=== PATIENT | female | born 1965 | race Two or more races ===

== ENCOUNTER 2017-04-01 08:20 | Outpatient (CLI) | payer OTHER ==
[~2017-04-01 08:20] MED LIST: ATACAND HCT 11 UDTAB PO; VOLTAREN
== END 2017-04-01 08:34 | disposition home or self-care (01) ==
LOC: MRI 08:20
DX: M54.16 Radiculopathy, lumbar region (principal)
CPT/HCPCS: 72148

== ENCOUNTER 2018-02-18 10:33 | Outpatient (CLI) | payer OTHER | END 2018-02-18 10:54 | disposition home or self-care (01) | LOC: RAD 10:33 | DX: N18.3 Chronic kidney disease, stage 3 (moderate) (principal); M19.91 Primary osteoarthritis, unspecified site ==

== ENCOUNTER 2018-03-02 10:27 | Outpatient (CLI) | payer OTHER | END 2018-03-02 10:38 | disposition home or self-care (01) | LOC: RAD 10:27 | DX: Z01.818 Encounter for other preprocedural examination (principal) ==

== ENCOUNTER 2018-03-30 12:13 | Outpatient (CLI) | payer OTHER | END 2018-03-30 14:25 | disposition home or self-care (01) | LOC: RAD 12:13 | DX: T84.84XA Pain due to internal orthopedic prosthetic devices, implants and grafts, initial encounter (principal) ==

== ENCOUNTER 2020-04-25 08:47 | Outpatient (CLI) | payer OTHER | END 2020-04-25 09:03 | disposition home or self-care (01) | LOC: SONOGRAMA 08:47 → MAMO-SONO 09:15 | PROVIDERS: ATTEND Internal Medicine Nephrology | DX: M19.91 Primary osteoarthritis, unspecified site (principal) ==

== ENCOUNTER 2020-06-01 09:48 | Outpatient (CLI) | payer OTHER | END 2020-06-01 10:14 | disposition home or self-care (01) | LOC: MRI 09:48 | PROVIDERS: ATTEND Internal Medicine | DX: M54.9 Dorsalgia, unspecified (principal); M51.26 Other intervertebral disc displacement, lumbar region; M51.27 Other intervertebral disc displacement, lumbosacral region | CPT/HCPCS: 72148 ==

== ENCOUNTER → 2020-06-01 10:13 | Outpatient (CLI) | payer OTHER | END | disposition home or self-care (01) | LOC: LAB 10:13 | PROVIDERS: ATTEND Internal Medicine | DX: I10 Essential (primary) hypertension (principal); E11.9 Type 2 diabetes mellitus without complications; E03.9 Hypothyroidism, unspecified ==

== ENCOUNTER 2020-10-23 08:32 | Outpatient (CLI) | payer OTHER | END 2020-10-23 08:42 | disposition home or self-care (01) | LOC: MAMO-SONO 08:32 | PROVIDERS: ATTEND Internal Medicine | DX: N63.41 Unspecified lump in right breast, subareolar (principal); N63.11 Unspecified lump in the right breast, upper outer quadrant; N63.12 Unspecified lump in the right breast, upper inner quadrant; Z12.31 Encounter for screening mammogram for malignant neoplasm of breast ==

== ENCOUNTER → 2021-06-21 11:27 | Outpatient (CLI) | payer OTHER | END | disposition home or self-care (01) | LOC: LAB 11:27 | PROVIDERS: ATTEND Internal Medicine | DX: U07.1 COVID-19 (principal); B39.1 Chronic pulmonary histoplasmosis capsulati ==

== ENCOUNTER 2021-07-25 07:10 | Outpatient (CLI) | payer OTHER | END 2021-07-25 07:11 | disposition home or self-care (01) | LOC: NUCLEAR 07:10 | PROVIDERS: ATTEND Psychiatry & Neurology Neurology | DX: M06.9 Rheumatoid arthritis, unspecified (principal) | CPT/HCPCS: 78315; A9503 ==

== ENCOUNTER 2021-08-06 14:05 | Outpatient (CLI) | payer OTHER | END 2021-08-06 14:17 | disposition home or self-care (01) | LOC: MRI 14:05 | PROVIDERS: ATTEND Psychiatry & Neurology Neurology | DX: G30.0 Alzheimer's disease with early onset (principal) | CPT/HCPCS: 70551 ==